=== PATIENT | male | born 1980 | race Caucasian/White ===

== ENCOUNTER → 2022-06-18 | Outpatient (CLI) | payer OTHER | LOC: M PLAIMG 13:32 | PROVIDERS: ATTEND Chiropractor | DX: M99.03 Segmental and somatic dysfunction of lumbar region (principal) ==

== ENCOUNTER 2022-11-28 07:45 | Observation (INO) | payer OTHER ==
[~2022-11-28] VITALS: Ht 180.3 cm; Wt 97.2 kg
[2022-11-28] MEDS ORDERED: ROSU5TAB5 PO (08:49)
[2022-11-28] MEDS ORDERED: ACETAMINOPHEN 500 MG TAB PO ONE ×2 (09:25→14:35)
[2022-11-28 10:10] LABS: HEMATOCRIT 45.2 % (42.0-52.0); HEMOGLOBIN 15.2 g/dl (13.5-17.5); MEAN CORPUSCULAR HGB CONC 33.6 g/dl (32.0-36.5); MEAN CORPUSCULAR VOLUME 89.2 fl (80.0-96.0); PLATELET COUNT, AUTOMATED 202 10^3/uL (150-450); RED BLOOD COUNT 5.07 10^6/uL (4.30-6.10); WHITE BLOOD COUNT 16.8 10^3/uL (4.0-10.0)
[2022-11-28 10:41] LABS: CPK CREATINE PHOSPHOKINASE 146 U/L (46-171); MB/CK RELATIVE INDEX 0.68 (< OR =4)
[2022-11-28 10:43] LABS: ATYPICAL LYMPH 6 % (0-5); LYMPHOCYTES 4 % (16-44); MONOCYTES 7 % (0-5); NEUTROPHILS 83 % (28-66)
[2022-11-28 10:44] LABS: PLATELET ESTIMATE NORMAL (NORMAL)
[2022-11-28] MEDS ORDERED: NS 1,000 ML IV ONE (10:55)
[2022-11-28 11:02] LABS: ERYTHROCYTE SEDIMENTATION RATE 28 mm/hr (0-15)
[2022-11-28] MEDS ORDERED: KETOROLAC 30 MG/ML 1ML VIAL IV ONE (11:35)
[2022-11-28] MEDS ORDERED: FAMO10TA52 PO (14:23)
[2022-11-28] MEDS ORDERED: MED REC IN PROGRESS XX SCH (14:25)
[2022-11-28] MEDS ORDERED: HOME MED LIST COMPLETE! XX SCH (14:30)
[2022-11-28 14:44] LABS: SOURCE, BODY FLUID LFT KNEE; SYNOVIAL FLUID COLOR RED (COLORLESS)
[2022-11-28 14:45] LABS: SOURCE, BODY FLUID CRYSTALS LFT KNEE
[2022-11-28] MEDS ORDERED: oxyCODONE 5MG TAB PO PRN (15:00)
[2022-11-28] MEDS ORDERED: MORPHINE 4 MG/ML 1ML VIAL IV PRN (15:00)
[2022-11-28] MEDS ORDERED: FAMOTIDINE 40MG/5ML ORAL SUSPENSON 50ML BOTTLE PO PRN (15:00)
[2022-11-28 15:01] LABS: CRYSTALS, BODY FLUID NONE SEEN (NONE SEEN)
[2022-11-28] MEDS ORDERED: PILL CUTTER 1 EACH XX PRN (15:15)
[2022-11-28 15:34] LABS: RSV AMPLIFICATION NEGATIVE (NEGATIVE)
[2022-11-28] MEDS: KETOROLAC 30 MG/ML 1ML VIAL IV SCH (18:11)
[2022-11-28 18:54] VITALS: BP 132/81; TEMP 101.3; O2SAT 97
[2022-11-28 19:52] VITALS: BP 138/70; TEMP 101; O2SAT 98
[2022-11-28 20:40] VITALS: TEMP 101.6
[2022-11-28] MEDS: ACETAMINOPHEN TAB 650MG DOSE (2X325MG) PO PRN (20:52)
[2022-11-28 22:16] VITALS: TEMP 101
[2022-11-29] VITALS (7 sets, daily range): BP systolic 124; BP diastolic 58; TEMP 99–102.1
[2022-11-29] MEDS: KETOROLAC 30 MG/ML 1ML VIAL IV SCH ×3 (00:12→11:17)
[2022-11-29] MEDS: ACETAMINOPHEN TAB 650MG DOSE (2X325MG) PO PRN ×2 (05:38→11:19)
[2022-11-29 06:43] LABS: HEMATOCRIT 39.8 % (42.0-52.0); HEMOGLOBIN 13.3 g/dl (13.5-17.5); MEAN CORPUSCULAR HEMOGLOBIN 30.2 pg (27.0-33.0); MEAN CORPUSCULAR HGB CONC 33.4 g/dl (32.0-36.5); MEAN CORPUSCULAR VOLUME 90.2 fl (80.0-96.0); PLATELET COUNT, AUTOMATED 170 10^3/uL (150-450); RED BLOOD COUNT 4.41 10^6/uL (4.30-6.10); WHITE BLOOD COUNT 17.3 10^3/uL (4.0-10.0)
[2022-11-29] MEDS ORDERED: ROSUVASTATIN 10 MG TAB (CRESTOR) PO SCH (09:00)
[2022-11-29] MEDS ORDERED: IBUP-1022 PO (12:19)
[2022-11-29] MEDS ORDERED: IBUPROFEN 600MG TAB PO PRN (18:00)
[2022-11-30] MEDS ORDERED: IBUP1TAB7 PO (04:17)
[2022-12-04] MEDS ORDERED: OXYC1TAB23 PO (10:11)
== END 2022-11-29 15:47 | disposition home or self-care (01) ==
LOC: M ED 07:45 → M ED INP 14:59 → M MS4PR 18:45
PROVIDERS: ADMIT Orthopaedic Surgery; ATTEND Orthopaedic Surgery
DX: M25.562 Pain in left knee (principal); R50.9 Fever, unspecified; D72.829 Elevated white blood cell count, unspecified; R70.0 Elevated erythrocyte sedimentation rate; R79.82 Elevated C-reactive protein (CRP); R00.0 Tachycardia, unspecified; R55 Syncope and collapse; E78.5 Hyperlipidemia, unspecified; K21.9 Gastro-esophageal reflux disease without esophagitis; Z79.899 Other long term (current) drug therapy
CPT/HCPCS: 20610; 36415; 70450; 71045; 73564; 80047; 81001; 82550; 82553; 83605; 84484; 84550; 85025; 85027; 85652; 86140; 87040; 87070; 87205; 87631; 89050; 89060; 93005; 96374; 96376; 97161; 97165; 97530; 99285; J1885

== ENCOUNTER 2022-11-30 01:13 | Inpatient (IN) | payer OTHER ==
[~2022-11-30] VITALS: Ht 180.3 cm; Wt 96.2 kg
[2022-11-30] VITALS (9 sets, daily range): BP systolic 104–127; BP diastolic 62–83; TEMP 97.9–102; O2SAT 97–100
[~2022-11-30 01:13] MED LIST: FAMO10TA52 PO; IBUP-1022 PO; ROSU5TAB5 PO
[2022-11-30] MEDS ORDERED: DOCUSATE SODIUM 100MG CAPSULE PO PRN (02:00)
[2022-11-30] MEDS ORDERED: MOM 30ML SUSPENSION UDC PO PRN (02:00)
[2022-11-30 02:35] LABS: HEMATOCRIT 38.3 % (42.0-52.0); HEMOGLOBIN 12.7 g/dl (13.5-17.5); MEAN CORPUSCULAR HEMOGLOBIN 30.2 pg (27.0-33.0); MEAN CORPUSCULAR HGB CONC 33.2 g/dl (32.0-36.5); PLATELET COUNT, AUTOMATED 166 10^3/uL (150-450); RED BLOOD COUNT 4.21 10^6/uL (4.30-6.10); WHITE BLOOD COUNT 15.8 10^3/uL (4.0-10.0)
[2022-11-30] MEDS ORDERED: LR 1,000 ML IV ONE (02:45)
[2022-11-30 02:52] LABS: ALBUMIN 2.8 G/DL (3.2-5.2); ALKALINE PHOSPHATASE 51 U/L (46-116); ALT/SGPT 25 U/L (7.0-40); AST/SGOT < 8 U/L (<34); BILIRUBIN,TOTAL 1.6 MG/DL (0.3-1.2); BLOOD UREA NITROGEN 14 MG/DL (9-23); CALCIUM LEVEL 7.9 MG/DL (8.5-10.1); CARBON DIOXIDE LEVEL 24 MMOL/L (20-31); CHLORIDE LEVEL 106 MMOL/L (98-107); CREATININE FOR GFR 0.99 MG/DL (0.70-1.30); GLOMERULAR FILTRATION RATE > 60.0 (>60); GLUCOSE, FASTING 136 MG/DL (60-100); POTASSIUM SERUM 3.4 MMOL/L (3.5-5.1); SODIUM LEVEL 140 MMOL/L (136-145); TOTAL PROTEIN 6.2 G/DL (5.7-8.2)
[2022-11-30] MEDS ORDERED: PIPERACILLIN/TAZOBACTAM SOD 3.375 GM in D5W MINI-BAG PLUS 50 ML IV ONE (03:00)
[2022-11-30] MEDS ORDERED: POTASSIUM CHLORIDE 10MEQ SR TABLET PO ONE (03:00)
[2022-11-30 03:06] LABS: INR 1.09; PROTHROMBIN TIME 13.8 SECONDS (12.5-14.5)
[2022-11-30 03:25] LABS: RSV AMPLIFICATION NEGATIVE (NEGATIVE)
[2022-11-30 03:37] LABS: PROCALCITONIN 0.47 ng/ml
[2022-11-30] MEDS ORDERED: VANCOMYCIN HCL 1,000 MG, VIAL MATE ADAPTER 1 EACH in D5W 250 ML IV ONE ×2 (04:00→05:00)
[2022-11-30] MEDS ORDERED: IBUP1TAB7 PO (04:17)
[2022-11-30] MEDS ORDERED: HOME MED LIST COMPLETE! XX SCH (04:20)
[2022-11-30] MEDS: LR 1,000 ML IV SCH ×2 (05:35→16:30)
[2022-11-30] MEDS: ACETAMINOPHEN TAB 650MG DOSE (2X325MG) PO PRN ×3 (10:10→19:41)
[2022-11-30] MEDS: KCL 10MEQ/100ML SWI (KRUN) 10 MEQ in IV 1 EA IV SCH ×4 (10:10→13:30)
[2022-11-30] MEDS: VANCOMYCIN HCL 1,000 MG, VIAL MATE ADAPTER 1 EACH in D5W 250 ML IV SCH ×2 (14:42→21:44)
[2022-11-30] MEDS: IBUPROFEN 400MG TAB PO PRN (16:31)
[2022-11-30] MEDS ORDERED: PROHANCE 279.3MG/ML 5ML VIAL As Ordered ONE (18:42)
[2022-11-30] MEDS ORDERED: PROHANCE 279.3MG/ML 15ML VIAL As Ordered ONE (18:42)
[2022-11-30] MEDS: cefTRIAXone SOD 2 GM in D5W MINI-BAG PLUS 50 ML IV SCH (19:43)
[2022-12-01] VITALS (7 sets, daily range): BP systolic 101–120; BP diastolic 55–73; TEMP 98.6–101.5; O2SAT 95–98
[2022-12-01] MEDS: ACETAMINOPHEN TAB 650MG DOSE (2X325MG) PO PRN ×5 (00:33→22:02)
[2022-12-01] MEDS: IBUPROFEN 400MG TAB PO PRN ×3 (00:33→17:21)
[2022-12-01] MEDS: LR 1,000 ML IV SCH ×2 (05:24→21:54)
[2022-12-01 06:00] LABS: HEMATOCRIT 36.8 % (42.0-52.0); HEMOGLOBIN 12.1 g/dl (13.5-17.5); MEAN CORPUSCULAR HGB CONC 32.9 g/dl (32.0-36.5); MEAN CORPUSCULAR VOLUME 91.3 fl (80.0-96.0); PLATELET COUNT, AUTOMATED 189 10^3/uL (150-450); RED BLOOD COUNT 4.03 10^6/uL (4.30-6.10); WHITE BLOOD COUNT 10.7 10^3/uL (4.0-10.0)
[2022-12-01 06:30] LABS: VANCOMYCIN LEVEL TROUGH 11.1 UG/ML (10.0-20.0)
[2022-12-01 06:31] LABS: BLOOD UREA NITROGEN 8 MG/DL (9-23); CALCIUM LEVEL 8.1 MG/DL (8.5-10.1); CARBON DIOXIDE LEVEL 27 MMOL/L (20-31); CHLORIDE LEVEL 108 MMOL/L (98-107); CREATININE FOR GFR 0.94 MG/DL (0.70-1.30); GLOMERULAR FILTRATION RATE > 60.0 (>60); GLUCOSE, FASTING 98 MG/DL (60-100); POTASSIUM SERUM 3.8 MMOL/L (3.5-5.1); SODIUM LEVEL 143 MMOL/L (136-145)
[2022-12-01] MEDS: VANCOMYCIN HCL 1,000 MG, VIAL MATE ADAPTER 1 EACH in D5W 250 ML IV SCH ×3 (06:44→21:53)
[2022-12-01] MEDS: HEPARIN SOD (PORCINE) 5000UNITS/ML 1ML VIAL/SYRINGE SC SCH ×2 (16:34→21:53)
[2022-12-01] MEDS: cefTRIAXone SOD 2 GM in D5W MINI-BAG PLUS 50 ML IV SCH (17:20)
[2022-12-02] VITALS (10 sets, daily range): BP systolic 109–119; BP diastolic 72–81; TEMP 97.5–99.7; O2SAT 92–98
[2022-12-02] MEDS: IBUPROFEN 400MG TAB PO PRN ×2 (01:13→09:25)
[2022-12-02] MEDS: MAALOX 30 ML SUSP *UDC PO PRN ×2 (02:49→23:56)
[2022-12-02] MEDS: HEPARIN SOD (PORCINE) 5000UNITS/ML 1ML VIAL/SYRINGE SC SCH ×3 (06:00→21:15)
[2022-12-02] MEDS: VANCOMYCIN HCL 750 MG, VIAL MATE ADAPTER 1 EACH in D5W 250 ML IV SCH ×3 (06:44→22:55)
[2022-12-02] MEDS: VANCOMYCIN HCL 500 MG in D5W MINI-BAG PLUS 100 ML IV SCH ×3 (07:24→23:42)
[2022-12-02] MEDS: LR 1,000 ML IV SCH ×2 (07:24→21:14)
[2022-12-02 07:38] LABS: BLOOD UREA NITROGEN 8 MG/DL (9-23); CALCIUM LEVEL 8.4 MG/DL (8.5-10.1); CARBON DIOXIDE LEVEL 27 MMOL/L (20-31); CHLORIDE LEVEL 106 MMOL/L (98-107); CREATININE FOR GFR 0.87 MG/DL (0.70-1.30); GLOMERULAR FILTRATION RATE > 60.0 (>60); GLUCOSE, FASTING 98 MG/DL (60-100); MAGNESIUM LEVEL 2.2 MG/DL (1.8-2.4); POTASSIUM SERUM 3.9 MMOL/L (3.5-5.1); SODIUM LEVEL 140 MMOL/L (136-145)
[2022-12-02 07:48] LABS: BASO % 0.3 % (0.0-1.0); EOS # 0.1 10^3/uL (0.0-0.5); EOS % 0.5 % (0.0-3.0); HEMATOCRIT 36.6 % (42.0-52.0); HEMOGLOBIN 12.3 g/dl (13.5-17.5); LYMPH # 1.6 10^3/uL (1.5-5.0); LYMPH % 14.9 % (24.0-44.0); MEAN CORPUSCULAR HEMOGLOBIN 30.4 pg (27.0-33.0); MEAN CORPUSCULAR HGB CONC 33.6 g/dl (32.0-36.5); MEAN CORPUSCULAR VOLUME 90.6 fl (80.0-96.0); MONO # 1.1 10^3/uL (0.0-0.8); MONO % 10.2 % (2.0-8.0); NEUTROPHILS % 73.8 % (36.0-66.0); PLATELET COUNT, AUTOMATED 224 10^3/uL (150-450); RED BLOOD COUNT 4.04 10^6/uL (4.30-6.10); WHITE BLOOD COUNT 10.9 10^3/uL (4.0-10.0)
[2022-12-02] MEDS: SIMETHICONE 80MG CHEW TAB PO PRN (09:25)
[2022-12-02] MEDS: ACETAMINOPHEN TAB 650MG DOSE (2X325MG) PO PRN ×2 (09:25→14:55)
[2022-12-02] MEDS ORDERED: LIDOCAINE 2% 100MG/5ML SDV (FOR ANES.) As Ordered ONE (11:21)
[2022-12-02] MEDS ORDERED: fentaNYL 100 MCG/2 ML INJECTION As Ordered ONE ×2 (11:21→12:59)
[2022-12-02] MEDS ORDERED: ONDANSETRON 4MG 2ML VIAL As Ordered ONE (11:21)
[2022-12-02] MEDS ORDERED: propofoL 200 MG/20 ML VIAL As Ordered ONE (11:21)
[2022-12-02] MEDS ORDERED: MIDAZOLAM INJ 2MG/2ML VIAL As Ordered ONE (11:21)
[2022-12-02] MEDS ORDERED: ACETAMINOPHEN 1000MG 100ML IV BAG As Ordered ONE (11:24)
[2022-12-02] MEDS ORDERED: VANCOMYCIN 1000MG/20ML VIAL As Ordered ONE ×2 (12:02→12:40)
[2022-12-02] MEDS ORDERED: ceFAZolin 2 GM/D5W 50 ML IV BAG As Ordered ONE (12:02)
[2022-12-02] MEDS ORDERED: KETOROLAC 60MG 2ML VIAL As Ordered ONE (12:42)
[2022-12-02] MEDS ORDERED: METOCLOPRAMIDE INJ 10MG/2ML VIAL IV PRN (13:00)
[2022-12-02] MEDS ORDERED: fentaNYL 100 MCG/2 ML INJECTION IV PRN (13:00)
[2022-12-02] MEDS ORDERED: ONDANSETRON 4MG 2ML VIAL IV PRN (13:00)
[2022-12-02] MEDS ORDERED: HYDROMORPHONE HCL 0.5 MG/ 0.5 ML SYRINGE IV PRN (13:00)
[2022-12-02] MEDS ORDERED: oxyCODONE 5MG TAB PO PRN (13:00)
[2022-12-02] MEDS ORDERED: LR 1,000 ML IV SCH (13:00)
[2022-12-02] MEDS ORDERED: MORPHINE 4 MG/ML 1ML VIAL IV PRN (13:25)
[2022-12-02 14:29] LABS: CRYSTALS, BODY FLUID NONE SEEN (NONE SEEN); SOURCE, BODY FLUID CRYSTALS LFT KNEE
[2022-12-02] MEDS: IBUPROFEN 600MG TAB PO PRN (14:56)
[2022-12-02 15:02] LABS: BLOOD UREA NITROGEN 8 MG/DL (9-23); CALCIUM LEVEL 8.3 MG/DL (8.5-10.1); CARBON DIOXIDE LEVEL 28 MMOL/L (20-31); CHLORIDE LEVEL 105 MMOL/L (98-107); CREATININE FOR GFR 0.91 MG/DL (0.70-1.30); GLOMERULAR FILTRATION RATE > 60.0 (>60); GLUCOSE, FASTING 105 MG/DL (60-100); POTASSIUM SERUM 4.3 MMOL/L (3.5-5.1); SODIUM LEVEL 140 MMOL/L (136-145)
[2022-12-02] MEDS: cefTRIAXone SOD 2 GM in D5W MINI-BAG PLUS 50 ML IV SCH (17:58)
[2022-12-02] MEDS: oxyCODONE 5MG TAB PO PRN (17:58)
[2022-12-02 19:29] LABS: BLOOD UREA NITROGEN 9 MG/DL (9-23); CALCIUM LEVEL 8.7 MG/DL (8.5-10.1); CARBON DIOXIDE LEVEL 26 MMOL/L (20-31); CHLORIDE LEVEL 105 MMOL/L (98-107); GLOMERULAR FILTRATION RATE > 60.0 (>60); GLUCOSE, FASTING 149 MG/DL (60-100); POTASSIUM SERUM 4.3 MMOL/L (3.5-5.1); SODIUM LEVEL 139 MMOL/L (136-145)
[2022-12-03] MEDS: oxyCODONE 5MG TAB PO PRN ×2 (00:06→07:59)
[2022-12-03 01:27] LABS: BLOOD UREA NITROGEN 8 MG/DL (9-23); CALCIUM LEVEL 8.1 MG/DL (8.5-10.1); CARBON DIOXIDE LEVEL 26 MMOL/L (20-31); CHLORIDE LEVEL 105 MMOL/L (98-107); GLOMERULAR FILTRATION RATE > 60.0 (>60); GLUCOSE, FASTING 130 MG/DL (60-100); SODIUM LEVEL 140 MMOL/L (136-145)
[2022-12-03] MEDS: IBUPROFEN 600MG TAB PO PRN ×2 (04:04→12:47)
[2022-12-03] MEDS: HEPARIN SOD (PORCINE) 5000UNITS/ML 1ML VIAL/SYRINGE SC SCH ×2 (05:36→13:11)
[2022-12-03 06:18] LABS: BASO # 0.1 10^3/uL (0.0-0.2); BASO % 0.4 % (0.0-1.0); EOS # 0.1 10^3/uL (0.0-0.5); EOS % 0.4 % (0.0-3.0); HEMATOCRIT 37.3 % (42.0-52.0); LYMPH # 1.7 10^3/uL (1.5-5.0); LYMPH % 14.8 % (24.0-44.0); MEAN CORPUSCULAR HEMOGLOBIN 29.9 pg (27.0-33.0); MEAN CORPUSCULAR HGB CONC 32.2 g/dl (32.0-36.5); MEAN CORPUSCULAR VOLUME 92.8 fl (80.0-96.0); MONO % 8.7 % (2.0-8.0); NEUTROPHILS # 8.7 10^3/uL (1.5-8.5); NEUTROPHILS % 75.2 % (36.0-66.0); PLATELET COUNT, AUTOMATED 228 10^3/uL (150-450); RED BLOOD COUNT 4.02 10^6/uL (4.30-6.10); WHITE BLOOD COUNT 11.6 10^3/uL (4.0-10.0)
[2022-12-03 06:29] VITALS: BP 116/77; TEMP 98.2; O2SAT 94
[2022-12-03] MEDS: VANCOMYCIN HCL 750 MG, VIAL MATE ADAPTER 1 EACH in D5W 250 ML IV SCH ×2 (06:46→15:11)
[2022-12-03 07:02] LABS: BLOOD UREA NITROGEN 8 MG/DL (9-23); CALCIUM LEVEL 8.1 MG/DL (8.5-10.1); CARBON DIOXIDE LEVEL 29 MMOL/L (20-31); CHLORIDE LEVEL 106 MMOL/L (98-107); CREATININE FOR GFR 0.87 MG/DL (0.70-1.30); GLOMERULAR FILTRATION RATE > 60.0 (>60); GLUCOSE, FASTING 106 MG/DL (60-100); MAGNESIUM LEVEL 2.2 MG/DL (1.8-2.4); POTASSIUM SERUM 3.8 MMOL/L (3.5-5.1); SODIUM LEVEL 141 MMOL/L (136-145)
[2022-12-03 07:05] LABS: VANCOMYCIN LEVEL TROUGH 13.6 UG/ML (10.0-20.0)
[2022-12-03] MEDS: VANCOMYCIN HCL 500 MG in D5W MINI-BAG PLUS 100 ML IV SCH ×2 (07:58→16:16)
[2022-12-03 10:00] VITALS: BP 115/73; TEMP 99.4; O2SAT 96
[2022-12-03] MEDS: LR 1,000 ML IV SCH (11:31)
[2022-12-03] MEDS: ACETAMINOPHEN TAB 650MG DOSE (2X325MG) PO PRN (13:11)
[2022-12-03 13:15] LABS: BLOOD UREA NITROGEN 8 MG/DL (9-23); CALCIUM LEVEL 8.4 MG/DL (8.5-10.1); CARBON DIOXIDE LEVEL 29 MMOL/L (20-31); CHLORIDE LEVEL 104 MMOL/L (98-107); CREATININE FOR GFR 0.84 MG/DL (0.70-1.30); GLOMERULAR FILTRATION RATE > 60.0 (>60); GLUCOSE, FASTING 117 MG/DL (60-100); POTASSIUM SERUM 3.5 MMOL/L (3.5-5.1); SODIUM LEVEL 140 MMOL/L (136-145)
[2022-12-03 14:19] VITALS: BP 115/71; TEMP 99.1; O2SAT 96
[2022-12-03 16:00] VITALS: BP 118/75; TEMP 99.4; O2SAT 97
[2022-12-03] MEDS ORDERED: PERCOCET 5MG/325MG TAB PO PRN (17:20)
[2022-12-03] MEDS: cefTRIAXone SOD 2 GM in D5W MINI-BAG PLUS 50 ML IV SCH (17:23)
[2022-12-03] MEDS: SIMETHICONE 80MG CHEW TAB PO PRN (17:29)
[2022-12-03 18:00] VITALS: BP 120/79; TEMP 99.5; O2SAT 98
[2022-12-03 19:44] LABS: BLOOD UREA NITROGEN 8 MG/DL (9-23); CALCIUM LEVEL 8.3 MG/DL (8.5-10.1); CARBON DIOXIDE LEVEL 29 MMOL/L (20-31); CHLORIDE LEVEL 102 MMOL/L (98-107); CREATININE FOR GFR 0.89 MG/DL (0.70-1.30); GLOMERULAR FILTRATION RATE > 60.0 (>60); GLUCOSE, FASTING 99 MG/DL (60-100); POTASSIUM SERUM 3.6 MMOL/L (3.5-5.1); SODIUM LEVEL 140 MMOL/L (136-145)
[2022-12-03 19:50] VITALS: BP 121/79; TEMP 99.9; O2SAT 98
[2022-12-03] MEDS ORDERED: AUGM500T34 PO (20:53)
[2022-12-03] MEDS ORDERED: DOXY-444 PO (20:54)
[2022-12-04] MEDS ORDERED: OXYC1TAB23 PO (10:11)
== END 2022-12-03 21:42 | disposition home or self-care (01) | DRG 317 ==
LOC: M ED 01:13 → EDBD 01:13 → M ED INP 01:57 → M MSPAV 04:16
PROVIDERS: ADMIT Internal Medicine; ATTEND Student in an Organized Health Care Education/Training Program
PROC: 0MBP0ZZ Excision of Left Knee Bursa and Ligament, Open Approach (ICD-10-PCS; principal; 2022-12-02 11:45)
DX: M00.862 Arthritis due to other bacteria, left knee (principal); L03.116 Cellulitis of left lower limb; B95.7 Other staphylococcus as the cause of diseases classified elsewhere; E87.6 Hypokalemia; R73.9 Hyperglycemia, unspecified; M70.42 Prepatellar bursitis, left knee; E80.6 Other disorders of bilirubin metabolism; K21.9 Gastro-esophageal reflux disease without esophagitis; E78.00 Pure hypercholesterolemia, unspecified; Z90.49 Acquired absence of other specified parts of digestive tract; Z79.899 Other long term (current) drug therapy

== ENCOUNTER → 2023-09-23 | Outpatient (CLI) | payer BC, OTHER ==
[~2023-09-23] MED LIST changes: +AUGM500T34 PO; +DOXY-440 PO; +IBUP1TAB7 PO; +OXYC1TAB23 PO; +ROSU5TAB40 PO; -ROSU5TAB5 PO
== END ==
LOC: M RAD 15:18
PROVIDERS: ATTEND Orthopaedic Surgery
DX: M51.17 Intervertebral disc disorders with radiculopathy, lumbosacral region (principal)

== ENCOUNTER → 2025-02-08 | Outpatient (REF) | payer BC ==
[~2025-02-08] MED LIST changes: -IBUP-1022 PO; +IBUP600T42 PO; -ROSU5TAB40 PO; +ROSU5TAB49 PO
== END ==
LOC: M LAB REF 17:33
PROVIDERS: ATTEND Otolaryngology
DX: D10.1 Benign neoplasm of tongue (principal)